=== PATIENT | male | born 1955 | race Hispanic/Latino ===

== ENCOUNTER 2023-09-17 20:10 | Emergency (ER) | payer OTHER ==
[2023-09-17 20:54] LABS: Absolute Basophils 0.1 K/uL (0-0.5); Absolute Eosinophils 0.2 K/uL (0-0.5); Absolute Lymphocytes (CBC) 2.7 K/uL (0.7-4.9); Absolute Neutrophil 5.6 K/uL (1.8-8.0); Basophils % 1.1 % (0-1.3); Eosinophils % 1.8 % (0-4.4); Hematocrit 50.3 % (39.6-49.0); Hemoglobin 16.6 g/dL (13.6-17.9); Lymphocytes % 28.6 % (15.3-44.8); MCH 29.4 pg (27.0-35.0); MCV 89.2 fL (80-100); MPV 8.1 fL (7.6-11.3); Monocytes % 10.6 % (3.3-12.3); Neutrophils % 57.9 % (41.7-73.7); Nucleated Red Blood Cells % 0.1 % (0-0); Platelets 309 thou/uL (152-406); RBC Red Blood Cell Count 5.65 M/uL (4.33-5.43); Red Cell Distribution Width 13.1 % (12.1-15.2)
--- NOTE | 2023-09-17 21:01 | RAD REPORT ---
EXAM DESCRIPTION: Paul Single View09/17/2023 8:44 pm CLINICAL HISTORY: Hypertension. Left-sided weakness COMPARISON: 2016 FINDINGS: Area of subsegmental atelectasis within right lung base Remainder of lungs appear clear of acute infiltrate. The heart is size.
[2023-09-17 21:09] LABS: PT Prothrombin Time 9.8 SECONDS (9.5-12.5); PTT, Activated Partial Thromb 32.4 SECONDS (24.3-36.9); Protime INR 0.89
[2023-09-17 21:14] LABS: ALT/SGPT 52 U/L (16-61); AST/SGOT 27 U/L (15-37); Albumin 3.7 g/dL (3.4-5.0); Albumin/Globulin Ratio 0.9 (1.1-1.8); Alkaline Phosphatase 90 U/L (45-117); BUN Blood Urea Nitrogen 13 mg/dL (7-18); Bicarbonate 29 mEq/L (21-32); Bilirubin Direct 0.1 mg/dL (0-0.2); Bilirubin Indirect, Calculated 0.2 mg/dL (0.2-0.8); Bilirubin Total 0.3 mg/dL (0.2-1.0); Globulin 4.1 g/dL (2.3-3.5); Glomerular Filtration Rate 91 ml/min (=/>90); Glucose Level 111 mg/dL (74-106); Magnesium 1.9 mg/dL (1.6-2.4); Protein, Total 7.8 g/dL (6.4-8.2); Sodium Level 139 mEq/L (136-145)
[2023-09-17 21:22] LABS: Troponin High Sensitivity < 3.0 pg/mL (<58.9)
--- NOTE | 2023-09-17 22:14 | RAD REPORT ---
EXAM DESCRIPTION: CT - Head Brain Wo Cont - 09/17/2023 10:04 pm CLINICAL HISTORY: Numbness COMPARISON: None TECHNIQUE: Computed axial tomography of the head was obtained. IV contrast was not requested. All CT scans are performed using dose optimization technique as appropriate and may include automated exposure control or mA/KV adjustment according to patient size. FINDINGS: An intracranial bleed is not seen The ventricles are normal in caliber No extra-axial fluid collection is noted. No significant hypodensity within the brain. Empty sella turcica is present. Fluid within the sinuses/ mastoids is not seen. IMPRESSION: No acute intracranial abnormality is seen If patient's symptoms persist MRI of the brain would be recommended
--- NOTE | 2023-09-17 22:31 | RAD REPORT ---
EXAM DESCRIPTION: Eulalia Angio09/17/2023 10:04 pm CLINICAL HISTORY: Numbness COMPARISON: None TECHNIQUE: 100 cc Isovue [address] angiogram of the neck was obtained. 3D MIPS reconstruction performed. All CT scans are performed using dose optimization technique as appropriate and may include automated exposure control or mA/KV adjustment according to patient size. FINDINGS: Visualized aortic arch and great vessels demonstrate no significant abnormality Severe calcified plaque right carotid bulb. Mild plaque left carotid bulb, common carotid , internal carotid and external carotid arteries. Severe calcified plaque distal right vertebral artery. Mild to moderate plaque distal left vertebral artery No dissection is seen. Nascet crieria Mild stenosis 0 to 49 % Moderate stenosis 50-69% Severe stenosis 70-99% IMPRESSION: Severe plaque right carotid bulb results in an approximately 95% stenosis Severe plaque distal right vertebral artery results in an approximately 80-90% stenosis
--- NOTE | 2023-09-17 22:31 | RAD REPORT ---
EXAM DESCRIPTION: CTHead angio09/17/2023 10:02 pm CLINICAL HISTORY: numbness COMPARISON: none TECHNIQUE: 100 cc Isovue [address] angiogram of the head was obtained. 3D MIPS reconstruction performed. All CT scans are performed using dose optimization technique as appropriate and may include automated exposure control or mA/KV adjustment according to patient size. FINDINGS: The basilar, anterior cerebral, middle cerebral and posterior cerebral arteries do not dem onstrate a significant stenosis Moderate calcified plaque distal right internal and mild calcified plaque distal left internal caroti d arteries An aneurysm is not seen No large vessel occlusion IMPRESSION: No acute abnormality is displayed
[2023-09-17] MEDS ORDERED: ASPIRIN 81 MG CHEWABLE TABLET ONE (23:13)
[2023-09-17] MEDS ORDERED: DIAZEPAM 5 MG TABLET ONE (23:14)
[2023-09-17] MEDS ORDERED: NICOTINE 21 MG/PAT TD ONE (23:14)
--- NOTE | 2023-09-17 23:19 | ER ---
Nurse's Notes [facility] Name: Samy Cazares Age: 68 yrs Sex: Male : 1955 Arrival Date: 09/17/2023 Time: 20:10 Bed 19 Private MD: Ron Mae Diagnosis: Subacute cerebrovascular accident , TIA, right carotid bulb stenosis, right vertebral artery stenosis. Presentation: 09/16 20:36 Chief complaint: Patient states: left sided weakness and tingling times 2 weeks. vc1 Coronavirus screen: At this time, the client does not indicate any symptoms associated with coronavirus-19. Ebola Screen: Patient negative for fever greater than or equal to 101.5 degrees Fahrenheit, and additional compatible Ebola Virus Disease symptoms Patient denies exposure to infectious person. Patient denies travel to an Ebola-affected area in the 21 days before illness onset. No symptoms or risks identified at this time. Initial Sepsis Screen: Does the patient meet any 2 criteria? No. Patient's initial sepsis screen is negative. Does the patient have a suspected source of infection? No. Patient's initial sepsis screen is negative. Risk Assessment: Do you want to hurt yourself or someone else? Patient reports no desire to harm self or others. Note Symptoms started 2-3 weeks ago. Onset of symptoms is unknown. Care prior to arrival: None. Activity prior to arrival: None. Mechanism of Injury: No Mechanism of Injury. Transition of care: patient was not received from another setting of care. 20:36 Method Of Arrival: Ambulatory vc1 20:36 Acuity: BOOM 2 vc1 Triage Assessment: 20:40 General: Appears in no apparent distress. uncomfortable, Behavior is cooperative, vc1 anxious, Smells of cigarettes. Pain: Denies pain. EENT: No deficits noted. No signs and/or symptoms were reported regarding the EENT system. Neuro: Tesfaye Agitation-Sedation Scale (RASS): 0 - Alert and Calm Level of Consciousness is awake, alert, obeys commands, Oriented to person, place, time, situation, Appropriate for age Supervisor Extruding Department are weak on left Weakness in left arm(s) leg(s) Gait is steady, Speech is slurred, Facial symmetry appears normal, Reports numbness in left arm and left leg for 2-3 weeks weakness tingling. Cardiovascular: No deficits noted. Respiratory: Airway is patent Respiratory effort is even, unlabored, Respiratory pattern is regular, symmetrical. GI: No deficits noted. No signs and/or symptoms were reported involving the gastrointestinal system. : No deficits noted. No signs and/or symptoms were reported regarding the genitourinary system. Derm: Rash noted that is red, on face and abdomen. Musculoskeletal: Circulation, motion, and sensation intact. Historical: - Allergies: 20:38 No Known Allergies; vc1 - Home Meds: 20:38 zquil [Active]; vc1 - PMHx: 20:38 Hypertensive disorder; Insomnia; vc1 - PSHx: 20:38 left knee surgery; vc1 - Immunization history:: Adult Immunizations up to date, Client reports having NOT received the Covid vaccine. Flu vaccine is not up to date. - Infectious Disease History:: Denies. - Family history:: not pertinent. - Social history:: Smoking status: Patient reports the use of cigarette tobacco products, smokes two packs cigarettes per day. Screenin:09 [facility] ED Fall Risk Assessment (Adult) History of falling in the last 3 months, cp4 including since admission No falls in past 3 months (0 pts) Confusion or Disorientation No (0 pts) Intoxicated or Sedated No (0 pts) Impaired Gait No (0 pts) Mobility Assist Device Used No (0 pt) Altered Elimination No (0 pt) Score/Fall Risk Level 0 - 2 = Low Risk Oriented to surroundings, Maintained a safe environment, Assessed \T\ reinforced patient's understanding of fall precautions, Hourly rounding (assess needs \T\ fall precautionary measures) done. Abuse screen: Denies threats or abuse. Nutritional screening: No deficits noted. Tuberculosis screening: No symptoms or risk factors identified. 22:00 VAN Screening:. Enedina Swallow Protocol Brief Cognitive Screen What is your name? Normal, vc1 Where are you right now? Normal, What year is it? Normal. Oral Mechanism Examination Facial Symmetry: Normal, Motion: Normal, Lip Closure: Normal, Oral Mechanism Result: Normal. 3 oz Water Swallow Challenge: Pt able to drink all water without stopping, coughing, choking or throat clearing: Yes Result: PASS. Assessment: 21:09 General: Appears in no apparent distress. Behavior is calm, cooperative, appropriate cp4 for age. Pain: Denies pain. 22:17 Reassessment: No changes from previously documented assessment. Patient and/or family vc1 updated on plan of care and expected duration. Pain level reassessed. Patient is alert, oriented x 3, equal unlabored respirations, skin warm/dry/pink. 23:02 Reassessment: No changes from previously documented assessment. Patient and/or family vc1 updated on plan of care and expected duration. Pain level reassessed. Patient is alert, oriented x 3, equal unlabored respirations, skin warm/dry/pink. 09/17 00:00 Reassessment: Patient appears in no apparent distress at this time. No changes from vc1 previously documented assessment. Patient and/or family updated on plan of care and expected duration. Pain level reassessed. Patient is alert, oriented x 3, equal unlabored respirations, skin warm/dry/pink. Vital Signs: 09/16 20:36 BP 172 / 98; Pulse 104; Resp 24; Temp 98; Pulse Ox 94% ; Weight 68.04 kg; Height 5 ft. vc1 9 in. ; Pain 0/10; 21:00 BP 164 / 96; Pulse 103; Resp 18; Pulse Ox 92% ; cp4 22:17 BP 172 / 103; Pulse 94; Resp 16; Pulse Ox 92% on R/A; vc1 23:02 BP 185 / 108; Pulse 96; Resp 20; Pulse Ox 92% on R/A; vc1 23:33 Weight 80.3 kg; vc1 09/17 00:00 BP 165 / 105; Pulse 105; Resp 17; Pulse Ox 93% ; vc1 01:00 BP 157 / 99; Pulse 95; Resp 20; Pulse Ox 92% ; vc1 09/16 20:36 Body Mass Index 22.15 (80.30 kg, 175.26 cm) vc1 09/16 20:36 Pain Scale: Adult vc1 NIH Stroke Scale Scores: 09/16 22:00 NIHSS Score: 2 vc1 23:17 NIHSS Score: 2 sp4 ED Course: 20:16 Patient arrived in ED. gm2 20:17 Ron Mae DO is Private Physician. gm2 20:18 José Antonio Lee MD is Attending Physician. sp4 20:38 Triage completed. vc1 20:40 Arm band placed on right wrist. vc1 20:42 Patient has correct armband on for positive identification. Placed in gown. Bed in low vc1 position. Call light in reach. Adult w/ patient. patient monitor on. Pulse ox on. NIBP on. 20:43 Lilia Garcia is Primary Nurse. cp4 20:46 Stroke CXR 1 View In Process Unspecified. EDMS 20:53 Missed attempt(s): 18 gauge in right wrist. Bleeding controlled, band aid applied, kmf catheter tip intact. 20:54 Client placed on continuous cardiac and pulse oximetry monitoring. NIBP monitoring kmf applied. 20:54 Inserted saline lock: 18 gauge in right forearm, using aseptic technique. Blood kmf collected. 20:54 Initial lab(s) drawn, by me, sent to lab. EKG done, by ED staff, reviewed by José Antonio Lee MD. 21:09 Provided Education on: stroke. cp4 21:52 No provider procedures requiring assistance completed. cp4 22:00 Report given to Lawson Rodrigues. vc1 22:04 CT Head Angio In Process Unspecified. EDMS 22:06 CT Neck Angio In Process Unspecified. EDMS 22:06 Head Brain Wo Cont In Process Unspecified. EDMS 23:33 Initiated transfer to [facility] spoke with Maggy Li. wm 23:54 Pt accepted at [facility] ER by Dr. Vamsi Arias per Maggy Li. 09/17 00:28 EMS will transport with an ETA \T\ 0050. wm 01:05 Patient transferred, IV remains in place. vc1 Administered Medications: 09/16 23:04 Not Given (Physician Discretion): [id number] mg PO once sp4 23:25 Drug: Diazepam PO 5 mg PO once Route: PO; vc1 09/17 01:06 Follow up: Response: No adverse reaction; Marked relief of symptoms vc1 09/16 23:25 Drug: Aspirin PO Chewable Tablet 324 mg PO once; 81 mg tablets x 4 Route: PO; vc1 09/17 01:06 Follow up: Response: No adverse reaction vc1 09/16 23:25 Drug: Nicoderm CQ Transdermal Patch 21 mg/24 hr 1 patches Transdermal once {Note: right vc1 upper arm.} Route: Transdermal; Site: affected area; 23:55 Drug: HEParin IV 5000 units IV at bolus once {Co-Signature: vc1 (Citlalli Jackson RN).} lg3 Route: IV; Rate: bolus; Site: right wrist; 09/17 00:00 Follow up: IV Status: Infusion continued; Bolus vc1 09/16 23:55 Drug: Heparin (TN Drip) 12 units/kg/hr - ([place] [address] units, D5W IV 500 ml) IV at lg3 calculated rate Per protocol; Max initial rate 1000 units/hr {Co-Signature: vc1 (Citlalli Jackson RN).} Route: IV; Rate: calculated rate; Site: right wrist; 09/17 01:05 Follow up: IV Status: Infusion continued upon transfer vc1 Medication: 09/16 20:42 VIS not applicable for this client. vc1 Intake: Outcome: 23:18 ER care complete, transfer ordered by MD. pham 09/17 01:04 Transferred by ground EMS to [facility], Transfer form completed. vc1 X-rays sent w/ patient. Condition: good Instructed on the need for transfer, 01:05 Patient left the ED. vc1 NIH Stroke Scale - NIH Stroke Score Date: 09/17/2023 Time: 22:00 Total Score = 2 10. Dysarthria (speech clarity - read or repeat words) - 0(Normal) 11. Extinction and Inattention (visual/tactile/auditory/spatial/personal) - 0(No abnormality) 1a. Level of Consciousness (LOC) - 0(Alert) 1b. Level of Consciousness (LOC) (Month \T\ Age) - 0(Both) 1c. LOC Commands (Open \T\ Closes Eyes/Bindery Chief) - 0(Both) 2. Best Gaze (Lateral Gaze Paresis) - 0(Normal) 3. Visual Field Loss - 0(No visual loss) 4. Facial Palsy - 0(Normal) 5a. Left Arm: Motor (10-second hold) - 1(Drift) 5b. Right Arm: Motor (10-second hold) - 0(No drift) 6a. Left Leg: Motor (5-second hold - always test supine) - 1(Drift) 6b. Right Leg: Motor (5-second hold - always test supine) - 0(No drift) 7. Limb Ataxia (finger/nose \T\ heel/nielsen - test with eyes open) - 0(Absent) 8. Sensory Loss (pinprick arms/legs/face) - 0(Normal) 9. Best Language: Aphasia (description/naming/reading) - 0(No aphasia) Initials: vc1 NIH Stroke Scale - NIH Stroke Score Date: 09/17/2023 Time: 23:17 Total Score = 2 10. Dysarthria (speech clarity - read or repeat words) - 0(Normal) 11. Extinction and Inattention (visual/tactile/auditory/spatial/personal) - 0(No abnormality) 1a. Level of Consciousness (LOC) - 0(Alert) 1b. Level of Consciousness (LOC) (Month \T\ Age) - 0(Both) 1c. LOC Commands (Open \T\ Closes Eyes/Bindery Chief) - 0(Both) 2. Best Gaze (Lateral Gaze Paresis) - 0(Normal) 3. Visual Field Loss - 0(No visual loss) 4. Facial Palsy - 0(Normal) 5a. Left Arm: Motor (10-second hold) - 0(No drift) 5b. Right Arm: Motor (10-second hold) - 0(No drift) 6a. Left Leg: Motor (5-second hold - always test supine) - 1(Drift) 6b. Right Leg: Motor (5-second hold - always test supine) - 0(No drift) 7. Limb Ataxia (finger/nose \T\ heel/nielsen - test with eyes open) - 0(Absent) 8. Sensory Loss (pinprick arms/legs/face) - 1(Mild to moderate loss) 9. Best Language: Aphasia (description/naming/reading) - 0(No aphasia) Initials: sp4 Signatures: Dispatcher [employer] Azul Diane RN RN lg3 Betty Goodman Citlalli Jackson RN RN vc1 José Antonio Lee MD MD sp4 Lilia Garcia Ginger gm2 Keeley Mcgill [facility] Citlalli Jackson RN vc1 Corrections: (The following items were deleted from the chart) 09/16 23:40 23:37 Initiated transfer to [facility] wm
--- NOTE | 2023-09-17 23:19 | EDPHYS ---
Physician Documentation [facility] Name: Samy Cazares Age: 68 yrs Sex: Male : 1955 Arrival Date: 09/17/2023 Time: 20:10 Bed 19 Private MD: Ron Mae ED Physician José Antonio Lee HPI: 09/16 20:18 This 68 yrs old Other Race Male presents to ER via Unassigned with complaints of High sp4 Blood Pressure, Numbness Of Arm, Numbness Of Face, LEFT LEG NUMBNESS/DRAGS. 20:24 Patient presents with onset of left-sided weakness starting 3 days ago. Patient reports sp4 left arm numbness left leg and left arm weakness starting 3 weeks ago. . 23:35 Patient is a 68-year-old male with no significant past medical history but with a sp4 history of heavy tobacco use.. Patient presents with 3 weeks of left leg weakness also intermittent left arm weakness also left face left arm left leg tingling. Numbness tingling have intensified this afternoon prior to presentation prompting arrival to the emergency room this evening. Patient states periodically numbness becomes worse. Left lower extremity weakness has been present for the past 3 weeks.. Historical: - Allergies: 20:38 No Known Allergies; vc1 - Home Meds: 20:38 zquil [Active]; vc1 - PMHx: 20:38 Hypertensive disorder; Insomnia; vc1 - PSHx: 20:38 left knee surgery; vc1 - Immunization history:: Adult Immunizations up to date, Client reports having NOT received the Covid vaccine. Flu vaccine is not up to date. - Infectious Disease History:: Denies. - Family history:: not pertinent. - Social history:: Smoking status: Patient reports the use of cigarette tobacco products, smokes two packs cigarettes per day. ROS: 23:35 Constitutional: Negative for fever, chills, and weight loss, Neuro: Negative for sp4 headache, positive left lower extremity weakness, positive left leg left arm left facial numbness. 23:35 All other systems are negative, Exam: 23:35 Constitutional: This is a well developed, well nourished patient who is awake, alert, sp4 and in no acute distress. Head/Face: Normocephalic, atraumatic. Eyes: Pupils equal round and reactive to light, extra-ocular motions intact. Lids and lashes normal. Conjunctiva and sclera are not injected. Cornea within normal limits. Periorbital areas with no swelling, redness, or edema. ENT: Nares patent. No nasal discharge, no septal abnormalities noted. Tympanic membranes are normal and external auditory canals are clear. Oropharynx with no redness, swelling, or masses, exudates, or evidence of obstruction, uvula midline. Mucous membranes moist. Neck: Trachea midline, no thyromegaly or masses palpated, and no cervical lymphadenopathy. Supple, full range of motion without nuchal rigidity, or vertebral point tenderness. Chest/axilla: Normal chest wall appearance and motion. Nontender with no deformity. No lesions are appreciated. Cardiovascular: Regular rate and rhythm with a normal S1 and S2. No gallops, murmurs, or rubs. Normal PMI, no JVD. No pulse deficits. Respiratory: Lungs have equal breath sounds bilaterally, clear to auscultation and percussion. No rales, rhonchi or wheezes noted. No increased work of breathing, no retractions or nasal flaring. Abdomen/GI: Soft, with normal bowel sounds. No distension or tympany. No guarding or rebound. No evidence of tenderness throughout. Back: No spinal tenderness. No costovertebral tenderness. Skin: Warm, dry with normal turgor. Normal color with no rashes, no lesions, and no evidence of cellulitis. MS/ Extremity: Pulses equal, no cyanosis. Full, normal range of motion. Neuro: Awake and alert, GCS 15, oriented to person, place, time, and situation. Cranial nerves II-XII grossly intact. There is diminished sensation left lower extremity. There is a diminished strength left lower extremity 4 out of 5 patient still able to ambulate. NIHSS is 2. No facial asymmetry no speech deficit. No signs of aphasia or dysarthria. Psych: Awake, alert, with orientation to person, place and time. Behavior, mood, and affect are within normal limits 23:35 Neuro: Orientation: is normal, to person, place, time \T\ situation. Cranial nerves: CN II- XII are normal as tested, extraocular movements 23:46 ECG was reviewed by the Attending Physician. EKG time 2050 sp4 Vital Signs: 20:36 BP 172 / 98; Pulse 104; Resp 24; Temp 98; Pulse Ox 94% ; Weight 68.04 kg; Height 5 ft. vc1 9 in. ; Pain 0/10; 21:00 BP 164 / 96; Pulse 103; Resp 18; Pulse Ox 92% ; cp4 22:17 BP 172 / 103; Pulse 94; Resp 16; Pulse Ox 92% on R/A; vc1 23:02 BP 185 / 108; Pulse 96; Resp 20; Pulse Ox 92% on R/A; vc1 23:33 Weight 80.3 kg; vc1 09/17 00:00 BP 165 / 105; Pulse 105; Resp 17; Pulse Ox 93% ; vc1 01:00 BP 157 / 99; Pulse 95; Resp 20; Pulse Ox 92% ; vc1 09/16 20:36 Body Mass Index 22.15 (80.30 kg, 175.26 cm) vc1 09/16 20:36 Pain Scale: Adult vc1 NIH Stroke Scale Scores: 09/16 22:00 NIHSS Score: 2 vc1 23:17 NIHSS Score: 2 sp4 MDM: 20:31 Patient medically screened. sp4 23:40 ED course: EXAM DESCRIPTION: [facility] Angio09/17/2023 10:04 pm CLINICAL HISTORY: Numbness sp4 COMPARISON: None TECHNIQUE: 100 cc Isovue [address] angiogram of the neck was obtained. 3D MIPS reconstruction performed. All CT scans are performed using dose optimization technique as appropriate and may include automated exposure control or mA/KV adjustment according to patient size. FINDINGS: Visualized aortic arch and great vessels demonstrate no significant abnormality Severe calcified plaque right carotid bulb. Mild plaque left carotid bulb, common carotid , internal carotid and external carotid arteries. Severe calcified plaque distal right vertebral artery. Mild to moderate plaque distal left vertebral artery No dissection is seen. Nascet crieria Mild stenosis 0 to 49 % Moderate stenosis 50-69% Severe stenosis 70-99% IMPRESSION: Severe plaque right carotid bulb results in an approximately 95% stenosis Severe plaque distal right vertebral artery results in an approximately 80-90% stenosis. ED course: EXAM DESCRIPTION: [facility] angio09/17/2023 10:02 pm CLINICAL HISTORY: numbness COMPARISON: none TECHNIQUE: 100 cc Isovue [address] angiogram of the head was obtained. 3D MIPS reconstruction performed. All CT scans are performed using dose optimization technique as appropriate and may include automated exposure control or mA/KV adjustment according to patient size. FINDINGS: The basilar, anterior cerebral, middle cerebral and posterior cerebral arteries do not demonstrate a significant stenosis Moderate calcified plaque distal right internal and mild calcified plaque distal left internal carotid arteries An aneurysm is not seen No large vessel occlusion IMPRESSION: No acute abnormality is displayed. ED course: EXAM DESCRIPTION: [facility]09/17/2023 8:44 pm CLINICAL HISTORY: Hypertension. Left-sided weakness COMPARISON: 2016 FINDINGS: Area of subsegmental atelectasis within right lung base Remainder of lungs appear clear of acute infiltrate. The heart is size.. 23:45 Differential diagnosis: hypertensive crisis, Malignant HTN, CVA, intracerebral sp4 hemorrhage. Data reviewed: vital signs, nurses notes. 23:53 ED course: Patient accepted as ER to ER transfer. [facility] 09/16 20:24 Order name: Basic Metabolic Panel; Complete Time: 22:53 sp4 09/16 20:24 Order name: CBC with Diff; Complete Time: 22:53 4 09/16 20:24 Order name: Hepatic Function; Complete Time: 22:53 sp4 09/16 20:24 Order name: High Sensitivity Troponin; Complete Time: 22:53 sp4 09/16 20:24 Order name: Magnesium; Complete Time: 22:53 sp4 09/16 20:24 Order name: Protime (+inr); Complete Time: 22:53 sp4 09/16 20:24 Order name: Ptt, Activated; Complete Time: 22:53 4 09/16 23:47 Order name: Alcohol Level [facility] 09/16 20:24 Order name: CT Head Angio; Complete Time: 22:53 sp4 09/16 20:24 Order name: CT Neck Angio; Complete Time: 22:53 sp4 09/16 20:24 Order name: Stroke CXR 1 View; Complete Time: 22:53 4 09/16 20:36 Order name: Head Brain Wo Cont; Complete Time: 22:53 EDIA 09/16 20:24 Order name: Accucheck; Complete Time: 20:43 sp4 09/16 20:24 Order name: Cardiac monitoring; Complete Time: 20:43 sp4 09/16 20:24 Order name: EKG - Nurse/Tech; Complete Time: 21:08 sp4 09/16 20:24 Order name: IV Saline Lock; Complete Time: 20:43 sp4 09/16 20:24 Order name: Labs collected and sent; Complete Time: 21: sp4 09/16 20:24 Order name: NPO; Complete Time: 21: sp4 09/16 20:24 Order name: O2 Per Protocol; Complete Time: 21:09 sp4 09/16 20:24 Order name: O2 Sat Monitoring; Complete Time: 21: sp4 09/16 20:24 Order name: Stroke Swallow Screen; Complete Time: 21: sp4 EC:46 Rate is 100 beats/min. Rhythm is regular, Normal Sinus Rhythm. QRS Mongo is Normal. [place] sp4 interval is normal. QRS interval is normal. QT interval is normal. No Q waves. T waves are Normal. No ST changes noted. Clinical impression: Normal ECG. Interpreted by me. Reviewed by me. Administered Medications: 23:04 Not Given (Physician Discretion): [id number] mg PO once sp4 23:25 Drug: Diazepam PO 5 mg PO once Route: PO; [facility] 09/17 01:06 Follow up: Response: No adverse reaction; Marked relief of symptoms [facility] 09/16 23:25 Drug: Aspirin PO Chewable Tablet 324 mg PO once; 81 mg tablets x 4 Route: PO; [facility] 09/17 01:06 Follow up: Response: No adverse reaction [facility] 09/16 23:25 Drug: Nicoderm CQ Transdermal Patch 21 mg/24 hr 1 patches Transdermal once {Note: right vc1 upper arm.} Route: Transdermal; Site: affected area; 23:55 Drug: HEParin IV 5000 units IV at bolus once {Co-Signature: vc1 (Citlalli Jackson RN).} lg3 Route: IV; Rate: bolus; Site: right wrist; 09/17 00:00 Follow up: IV Status: Infusion continued; Bolus [facility] 09/16 23:55 Drug: Heparin (IN Drip) 12 units/kg/[place] - ([place] [address] units, D5W IV 500 ml) IV at lg3 calculated rate Per protocol; Max initial rate 1000 units/hr {Co-Signature: vc1 (Citlalli Jackson RN).} Route: IV; Rate: calculated rate; Site: right wrist; 09/17 01:05 Follow up: IV Status: Infusion continued upon transfer vc1 Disposition Summary: 09/17/23 23:18 Transfer Ordered Notes: Transfer Location: [facility] sp4 Reason: Higher level of care sp4 Condition: Stable sp4 Problem: new sp4 Symptoms: have improved sp4 Accepting Physician: Hattie Mon's attending Neurologist(09/18/23 01:05) vc1 Diagnosis - Subacute cerebrovascular accident , TIA, right carotid bulb stenosis, right sp4 vertebral artery stenosis. Forms: - Medication Reconciliation Form sp4 - SBAR form sp4 Critical care time excluding procedures: 09/16 23:54 Critical care time: Bedside Care: 36 minutes, Consultation: 12 minutes, Family sp4 Intervention: 12 minutes. Total time: 60 minutes NIH Stroke Scale - NIH Stroke Score Date: 09/17/2023 Time: 22:00 Total Score = 2 10. Dysarthria (speech clarity - read or repeat words) - 0(Normal) 11. Extinction and Inattention (visual/tactile/auditory/spatial/personal) - 0(No abnormality) 1a. Level of Consciousness (LOC) - 0(Alert) 1b. Level of Consciousness (LOC) (Month \T\ Age) - 0(Both) 1c. LOC Commands (Open \T\ Closes Eyes/Manufacturing Engineering Intern) - 0(Both) 2. Best Gaze (Lateral Gaze Paresis) - 0(Normal) 3. Visual Field Loss - 0(No visual loss) 4. Facial Palsy - 0(Normal) 5a. Left Arm: Motor (10-second hold) - 1(Drift) 5b. Right Arm: Motor (10-second hold) - 0(No drift) 6a. Left Leg: Motor (5-second hold - always test supine) - 1(Drift) 6b. Right Leg: Motor (5-second hold - always test supine) - 0(No drift) 7. Limb Ataxia (finger/nose \T\ heel/nielsen - test with eyes open) - 0(Absent) 8. Sensory Loss (pinprick arms/legs/face) - 0(Normal) 9. Best Language: Aphasia (description/naming/reading) - 0(No aphasia) Initials: vc1 NIH Stroke Scale - NIH Stroke Score Date: 09/17/2023 Time: 23:17 Total Score = 2 10. Dysarthria (speech clarity - read or repeat words) - 0(Normal) 11. Extinction and Inattention (visual/tactile/auditory/spatial/personal) - 0(No abnormality) 1a. Level of Consciousness (LOC) - 0(Alert) 1b. Level of Consciousness (LOC) (Month \T\ Age) - 0(Both) 1c. LOC Commands (Open \T\ Closes Eyes/Manufacturing Engineering Intern) - 0(Both) 2. Best Gaze (Lateral Gaze Paresis) - 0(Normal) 3. Visual Field Loss - 0(No visual loss) 4. Facial Palsy - 0(Normal) 5a. Left Arm: Motor (10-second hold) - 0(No drift) 5b. Right Arm: Motor (10-second hold) - 0(No drift) 6a. Left Leg: Motor (5-second hold - always test supine) - 1(Drift) 6b. Right Leg: Motor (5-second hold - always test supine) - 0(No drift) 7. Limb Ataxia (finger/nose \T\ heel/nielsen - test with eyes open) - 0(Absent) 8. Sensory Loss (pinprick arms/legs/face) - 1(Mild to moderate loss) 9. Best Language: Aphasia (description/naming/reading) - 0(No aphasia) Initials: sp4 Signatures: Dispatcher [employer] EDMS Azul Montoya RN RN lg3 Citlalli Jackson RN RN vc1 José Antonio Lee MD MD sp4 Citlalli Jackson RN vc1 Corrections: (The following items were deleted from the chart) 20:24 20:24 BASIC METABOLIC PANEL+C.LAB.BRZ ordered. EDMS EDMS 20:24 20:24 CBC+H.LAB.BRZ ordered. EDMS EDMS 20:24 20:24 HEPATIC FUNCTION+C.LAB.BRZ ordered. EDMS EDMS 20:24 20:24 Troponin High Sensitivity+C.LAB.BRZ ordered. EDMS EDMS 20:24 20:24 MAGNESIUM+C.LAB.BRZ ordered. EDMS EDMS 20:24 20:24 PROTIME (+INR)+COAG.LAB.BRZ ordered. EDMS EDMS 20:24 20:24 PTT, ACTIVATED+COAG.LAB.BRZ ordered. EDMS EDMS 20:24 20:24 URINE DRUG SCREEN+UC.LAB.BRZ ordered. EDMS EDMS 20:24 20:24 Head Angio+CT.RAD.BRZ ordered. [facility] 20:25 20:24 Neck Angio+CT.RAD.BRZ ordered. [facility] 20:25 20:25 CT-STROKE BRAIN W/O CONTRAST+CT.RAD.BRZ ordered. [facility] 20:25 20:25 Chest Single View+RAD.RAD.BRZ ordered. [facility] 09/17 00:43 09/16 23:35 Patient is a 17-year-old male with no significant past medical sp4 history but with a history of heavy tobacco use.. Patient presents with 3 weeks of left leg weakness also intermittent left arm weakness also left face left arm left leg tingling. Numbness tingling have intensified this afternoon prior to presentation prompting arrival to the emergency room this evening. Patient states periodically numbness becomes worse. Left lower extremity weakness has been present for the past 3 weeks.. spJesus 09/17 01:05 09/16 23:[address] [facility] attending Neurologist sp4 vc1
[2023-09-17] MEDS ORDERED: HEPARIN/D5W 25,000 UNIT/500 ML BAG IV ONE (23:44)
[2023-09-17] MEDS ORDERED: HEPARIN 5000 UNIT/ML 1 ML VIAL ONE (23:44)
[2023-09-18 11:16] VITALS: BP 165/105; TEMP 98; O2SAT 93
--- NOTE | 2023-09-18 13:28 | EKG ---
Test Date: 2023-09-17 Test Time: 20:50:20 Roving Carrier: CHRISTINA MEASUREMENT RESULTS: Intervals: Rate: 100 UT: 130 QRSD: 80 QT: 340 QTc: 438 [place]: P: 8 UT: 130 QRS: 17 T: 18 INTERPRETIVE STATEMENTS: Normal sinus rhythm Normal ECG No previous ECG available for comparison Electronically Signed On 09-18-23 13:27:05 CDT by Hector Shaw
== END 2023-09-18 01:05 | disposition short-term general hospital (02) ==
LOC: ER 20:10
DX: I63.9 Cerebral infarction, unspecified (principal); I65.21 Occlusion and stenosis of right carotid artery; I65.01 Occlusion and stenosis of right vertebral artery; I10 Essential (primary) hypertension; R29.702 NIHSS score 2; F17.210 Nicotine dependence, cigarettes, uncomplicated; Z28.310 Unvaccinated for COVID-19
CPT/HCPCS: 96365; 93005; 85025; 80048; 36415; 83735; 85610; 80076; 85730; 84484; 70450; 70496; 70498; 71045; 99285; 82077; Q9967; J1644